=== PATIENT | male | born 1970 | race Two or more races ===

== ENCOUNTER 2016-07-22 05:49 | Emergency (ER) | payer OTHER ==
[~2016-07-22] VITALS: Ht 177.8 cm; Wt 95.3 kg
[2016-07-22 05:58] VITALS: BP 130/84
== END 2016-07-22 06:40 | disposition home or self-care (01) ==
LOC: ER 05:52
DX: K08.89 Other specified disorders of teeth and supporting structures (principal); F17.210 Nicotine dependence, cigarettes, uncomplicated
CPT/HCPCS: 99283; A4606; Z7610

== ENCOUNTER 2018-03-23 12:06 | Emergency (ER) | payer OTHER ==
[~2018-03-23] VITALS: Ht 172.7 cm; Wt 101.2 kg
[2018-03-23 12:06] VITALS: BP 122/91
[2018-03-23] MEDS ORDERED: TDAP [DIPH/PERTUSSIS/TET] 0.5 ML VIAL IM ONE ×2 (13:00→13:02)
== END 2018-03-23 13:34 | disposition home or self-care (01) ==
LOC: ER 12:07
DX: S71.151A Open bite, right thigh, initial encounter (principal); S61.451A Open bite of right hand, initial encounter; F17.200 Nicotine dependence, unspecified, uncomplicated; W54.0XXA Bitten by dog, initial encounter; Y93.89 Activity, other specified; Y92.89 Other specified places as the place of occurrence of the external cause; Y99.8 Other external cause status
CPT/HCPCS: 90471; 90715; 99283; A4606; A6402; Z7610

== ENCOUNTER 2018-07-30 02:12 | Emergency (ER) | payer OTHER ==
[~2018-07-30] VITALS: Ht 182.9 cm; Wt 99.8 kg
--- NOTE | 2018-07-30 02:22 | NUR ---
PT BIBSELF C/O INTERMITTENT CHEST PAINX 1 WEEK. DENIES SOB. PT AOX4. NAD NOTED. RESP EVEN AND UNLABORED. PT ON MONITOR IN BED 9. WILL CONTINUE TO MONITOR.
--- NOTE | 2018-07-30 02:37 | NUR ---
TECH AT BEDSIDE FOR EKG
--- NOTE | 2018-07-30 02:40 | NUR ---
BLOOD DRAWN AND SENT TO LAB
[2018-07-30] MEDS ORDERED: KETOROLAC TROMETHAMINE 15 MG/ML VIAL ONE (02:47)
[2018-07-30 02:52] LABS: BASOPHILS % (AUTO) 0.6 % (0.0-2.0); EOSINOPHILS % (AUTO) 1.4 % (0.0-6.0); HEMATOCRIT 43 % (39-51); HEMOGLOBIN 14.6 g/dL (13.5-17.5); LYMPHOCYTES # (AUTO) 1.3 /CMM (0.8-4.8); LYMPHOCYTES % (AUTO) 24.8 % (20.0-44.0); MEAN CORPUSCULAR HGB CONC 34 g/dl (31.0-36.0); MEAN CORPUSCULAR VOLUME 86 fL (80-96); MONOCYTES # (AUTO) 0.6 /CMM (0.1-1.30); MONOCYTES % (AUTO) 11.5 % (2.0-12.0); NEUTROPHILS # (AUTO) 3.4 /CMM (1.8-8.9); NEUTROPHILS % (AUTO) 61.7 % (43.0-81.0); PLATELET COUNT (AUTO) 153 /CMM (150-450); RED BLOOD CELL COUNT(AUTO) 5.06 MIL/uL (4.5-6.0); WHITE BLOOD COUNT (AUTO) 5.4 K/uL (4.3-11.0)
[2018-07-30 02:55] VITALS: BP 124/79
--- NOTE | 2018-07-30 02:55 | NUR ---
RADIOLOGY AT BEDSIDE FOR XRAY
[2018-07-30] MEDS ORDERED: KETOROLAC TROMETHAMINE INJ 30 MG/ML VIAL IV ONE (03:00)
[2018-07-30] MEDS ORDERED: IV NS 0.9% 500 ML BAG IV ONE (03:00)
--- NOTE | 2018-07-30 03:00 | NUR ---
ADDENDUM: Intravenous End Time Documentation: Normal saline 500 cc (IV-WO): start time: 0300 AM; end time: 0325 AM: IV site:[facility] # 18 Port #1
[2018-07-30 03:05] LABS: ALANINE AMINOTRANSFERASE 36 U/L (12-78); ALBUMIN 3.7 g/dL (3.4-5.0); ALKALINE PHOSPHATASE 58 U/L (46-116); ASPARTATE AMINOTRANSFERASE 13 U/L (15-37); BILIRUBIN,DIRECT 0.1 mg/dL (0.0-0.2); BILIRUBIN,TOTAL 0.3 mg/dL (0.2-1.0); CALCIUM, SERUM 8.7 mg/dL (8.5-10.1); CARBON DIOXIDE 28 mmol/L (21-32); CHLORIDE 108 mmol/L (98-107); CREATININE 1.1 mg/dL (0.6-1.3); GLUCOSE 100 mg/dL (74-106); LIPASE 204 U/L (73-393); POTASSIUM 3.7 mmol/L (3.5-5.1); SODIUM SERUM 144 mmol/L (136-145); TOTAL PROTEIN, SERUM 6.5 g/dL (6.4-8.2); UREA NITROGEN, BLOOD 18 mg/dL (7-18)
--- NOTE | 2018-07-30 03:28 | NUR ---
IV removed. Catheter intact and site benign. Pressure and 4x4 applied to site. No bleeding noted.Patient discharged to home in stable condition. Written and verbal after care instructions given. Patient verbalizes understanding of instruction.
== END 2018-07-30 03:29 | disposition home or self-care (01) ==
LOC: ER 02:16
DX: S29.011A Strain of muscle and tendon of front wall of thorax, initial encounter (principal); F17.200 Nicotine dependence, unspecified, uncomplicated; E86.0 Dehydration; Z87.442 Personal history of urinary calculi; X58.XXXA Exposure to other specified factors, initial encounter; Y93.89 Activity, other specified; Y92.89 Other specified places as the place of occurrence of the external cause; Y99.8 Other external cause status
CPT/HCPCS: 36415; 71045; 80048; 80076; 83690; 84484; 85025; 93005; 96374; 99284; A4606; J1885; J7040; Z7610

== ENCOUNTER 2019-05-25 14:33 | Emergency (ER) | payer OTHER ==
[~2019-05-25] VITALS: Ht 180.3 cm; Wt 100.2 kg
[2019-05-25 14:40] VITALS: BP 131/97
--- NOTE | 2019-05-25 14:52 | NUR ---
SEEN AND EXAMINED BY .
--- NOTE | 2019-05-25 14:55 | NUR ---
ER PHLEB AT BEDSIDE FOR BLOOD DRAW.
--- NOTE | 2019-05-25 15:06 | NUR ---
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
[2019-05-25 15:09] LABS: BASOPHILS % (AUTO) 0.9 % (0.0-2.0); EOSINOPHILS % (AUTO) 1.9 % (0.0-6.0); HEMATOCRIT 43 % (39-51); HEMOGLOBIN 14.3 g/dL (13.5-17.5); LYMPHOCYTES # (AUTO) 1.1 /CMM (0.8-4.8); LYMPHOCYTES % (AUTO) 24.8 % (20.0-44.0); MEAN CORPUSCULAR HGB CONC 33 g/dl (31.0-36.0); MEAN CORPUSCULAR VOLUME 87 fL (80-96); MONOCYTES # (AUTO) 0.5 /CMM (0.1-1.30); MONOCYTES % (AUTO) 10.9 % (2.0-12.0); NEUTROPHILS # (AUTO) 2.8 /CMM (1.8-8.9); NEUTROPHILS % (AUTO) 61.5 % (43.0-81.0); PLATELET COUNT (AUTO) 139 /CMM (150-450); WHITE BLOOD COUNT (AUTO) 4.6 K/uL (4.3-11.0)
[2019-05-25 15:13] LABS: CALCIUM, SERUM 8.7 mg/dL (8.5-10.1); CREATININE 0.9 mg/dL (0.6-1.3)
--- NOTE | 2019-05-25 15:14 | NUR ---
TECH AT BEDSIDE FOR EKG.
--- NOTE | 2019-05-25 15:54 | NUR ---
Patient discharged to home in stable condition. Written and verbal after care instructions given. Patient verbalizes understanding of instruction.
== END 2019-05-25 15:55 | disposition home or self-care (01) ==
LOC: ER 14:35
DX: J32.9 Chronic sinusitis, unspecified (principal); J45.909 Unspecified asthma, uncomplicated; Z87.442 Personal history of urinary calculi
CPT/HCPCS: 36415; 71045-TC; 80048-TC; 85025-TC

== ENCOUNTER 2022-10-25 08:53 | Emergency (ER) | payer OTHER ==
[~2022-10-25] VITALS: Ht 182.9 cm; Wt 99.8 kg
--- NOTE | 2022-10-25 09:12 | NUR ---
DR KING AT BEDSIDE FOR EVAL.
--- NOTE | 2022-10-25 09:20 | NUR ---
IV LINE STARTED BLOOD DRAWN AND SENT TO LAB.
[2022-10-25] MEDS ORDERED: ACETAMINOPHEN ES 500 MG TABLET ONE (09:23)
--- NOTE | 2022-10-25 09:24 | NUR ---
RADIOLOGY AT BEDSIDE FOR EVAL.
[2022-10-25] MEDS ORDERED: IV NS 0.9% 1,000 ML IV ONE (09:30)
[2022-10-25] MEDS ORDERED: ACETAMINOPHEN 325 MG TABLET PO ONE (09:30)
[2022-10-25 09:44] LABS: BASOPHILS % (AUTO) 0.5 % (0.0-2.0); HEMATOCRIT 44 % (39-51); HEMOGLOBIN 14.4 g/dL (13.5-17.5); LYMPHOCYTES # (AUTO) 0.3 K/uL (0.8-4.8); LYMPHOCYTES % (AUTO) 12.4 % (20.0-44.0); MEAN CORPUSCULAR HGB CONC 33 g/dl (31.0-36.0); MEAN CORPUSCULAR VOLUME 85 fL (80-96); MONOCYTES # (AUTO) 0.3 K/uL (0.1-1.30); MONOCYTES % (AUTO) 11.1 % (2.0-12.0); NEUTROPHILS # (AUTO) 2.1 K/uL (1.8-8.9); PLATELET COUNT (AUTO) 63 K/uL (150-450); RED BLOOD CELL COUNT(AUTO) 5.13 MIL/uL (4.5-6.0); WHITE BLOOD COUNT (AUTO) 2.8 K/uL (4.3-11.0)
[2022-10-25 10:03] LABS: CALCIUM, SERUM 8.5 mg/dL (8.5-10.1); CREATININE 1.1 mg/dL (0.6-1.3); POTASSIUM 3.3 mmol/L (3.5-5.1)
[2022-10-25] MEDS ORDERED: POTASSIUM CHLORIDE 20 MEQ TAB.PRT.SR PO ONE ×2 (10:30→11:00)
[2022-10-25] MEDS ORDERED: TYL2T PO (11:22)
[2022-10-25] MEDS ORDERED: IBUP-1953 PO (11:22)
--- NOTE | 2022-10-25 11:33 | NUR ---
PT DISCHARGED EDUCATATED ON Rx AND DISCHARGE INSTRUCTIONS. IV CATHETER D/C'ED PT IN STABLE CONDITION WITH STEADY GAIT.
[2022-10-25 11:35] VITALS: BP 124/62
[2022-10-25 16:32] LABS: BAND % (MANUAL) 1 % (0.0-5.0); LYMPHOCYTES % (MANUAL) 10 % (16-48); MONOCYTES % (MANUAL) 11 % (0-11.0); NEUTROPHILS % (MANUAL) 77 (42-76); REACTIVE LYMPHOCYTES 1 % (0-0)
== END 2022-10-25 11:36 | disposition home or self-care (01) ==
LOC: ER 08:55
DX: J06.9 Acute upper respiratory infection, unspecified (principal); E87.6 Hypokalemia; F17.200 Nicotine dependence, unspecified, uncomplicated; Z87.442 Personal history of urinary calculi; Z20.822 Contact with and (suspected) exposure to COVID-19
CPT/HCPCS: 99285; 96360; 71045; 87426; 93005; 87804 ×2; 85025; 80048; 83605; 36415; 85007; J7030; C9803

== ENCOUNTER 2023-08-02 13:31 | Emergency (ER) | payer OTHER ==
[~2023-08-02] VITALS: Ht 182.9 cm; Wt 99.8 kg
[~2023-08-02 13:31] MED LIST: IBUP-1953 PO; TYL2T PO
[2023-08-02] MEDS ORDERED: IV NS 0.9% 1,000 ML BAG IV ONE (14:00)
[2023-08-02] MEDS ORDERED: ACETAMINOPHEN ES 500 MG TABLET PO ONE (14:00)
[2023-08-02 14:03] LABS: BASOPHILS % (AUTO) 0.6 % (0.0-2.0); EOSINOPHILS # (AUTO) 0.1 K/uL (0.0-0.7); EOSINOPHILS % (AUTO) 1.2 % (0.0-6.0); HEMATOCRIT 43 % (39-51); HEMOGLOBIN 14.2 g/dL (13.5-17.5); LYMPHOCYTES # (AUTO) 1.4 K/uL (0.8-4.8); LYMPHOCYTES % (AUTO) 28.8 % (20.0-44.0); MEAN CORPUSCULAR HEMOGLOBIN 28 PG (26.0-33.0); MEAN CORPUSCULAR HGB CONC 33 g/dl (31.0-36.0); MEAN CORPUSCULAR VOLUME 85 fL (80-96); MONOCYTES # (AUTO) 0.6 K/uL (0.1-1.30); MONOCYTES % (AUTO) 11.5 % (2.0-12.0); NEUTROPHILS # (AUTO) 2.9 K/uL (1.8-8.9); NEUTROPHILS % (AUTO) 57.9 % (43.0-81.0); PLATELET COUNT (AUTO) 170 K/uL (150-450); RED BLOOD CELL COUNT(AUTO) 5.02 MIL/uL (4.5-6.0); WHITE BLOOD COUNT (AUTO) 4.9 K/uL (4.3-11.0)
[2023-08-02 14:16] LABS: CALCIUM, SERUM 8.7 mg/dL (8.5-10.1); CREATININE 0.8 mg/dL (0.6-1.3); POTASSIUM 3.8 mmol/L (3.5-5.1)
[2023-08-02 14:17] LABS: ALBUMIN 3.9 g/dL (3.4-5.0); BILIRUBIN,DIRECT 0.1 mg/dL (0.0-0.2); BILIRUBIN,TOTAL 0.6 mg/dL (0.2-1.0); TOTAL PROTEIN, SERUM 7.2 g/dL (6.4-8.2)
[2023-08-02] MEDS ORDERED: ACETAMINOPHEN ES 500 MG TABLET ONE (14:31)
[2023-08-02 14:51] LABS: APPEARANCE,URINE CLEAR (CLEAR); BILIRUBIN,URINE NEGATIVE (NEGATIVE); BLOOD, URINE 1+ Ery/uL (NEGATIVE); COLOR,URINE YELLOW (YELLOW); KETONES,URINE NEGATIVE (NEGATIVE); LEUKOCYTE ESTERASE ,URINE NEGATIVE (NEGATIVE); NITRITE, URINE NEGATIVE (NEGATIVE); PROTEIN,URINE NEGATIVE (NEGATIVE); UGLUCOSE NEGATIVE (NEGATIVE); UROBILINOGEN,URINE 0.2 EU/dL (0.2)
[2023-08-02 15:18] LABS: ADD URINE CULTURE NO; BACTERIA,URINE Rare /HPF (None Seen); RBC,URINE 0-2 /HPF (0-2); SQUAMOUS EPITHELIAL CELL,UR Rare /HPF (None Seen); WBC,URINE NONE SEEN /HPF (0-3)
[2023-08-02] MEDS ORDERED: HYDR-4303 PO (16:12)
[2023-08-02 16:39] VITALS: BP 132/77; TEMP 98; O2SAT 97
[2023-08-02] MEDS ORDERED: HYDR-4277 PO (17:31)
== END 2023-08-02 16:39 | disposition home or self-care (01) ==
LOC: ER 13:36
DX: N23 Unspecified renal colic (principal)
CPT/HCPCS: 99284; 74176; 96360; 85025; 80048; 83690; 80076; 81001; 36415; J7030

== ENCOUNTER 2025-05-09 21:45 | Emergency (ER) | payer OTHER ==
[~2025-05-09] VITALS: Ht 182.9 cm; Wt 108.9 kg
[~2025-05-09 21:45] MED LIST changes: +HYDR-4277 PO; +HYDR-4303 PO
[2025-05-09] MEDS ORDERED: ONDANSETRON 4 MG TAB.RAPDIS ONE (22:48)
[2025-05-09] MEDS ORDERED: KETOROLAC TROMETHAMINE INJ 30 MG/ML VIAL ONE (22:48)
[2025-05-09] MEDS: KETOROLAC TROMETHAMINE INJ 30 MG/ML VIAL IM ONE (23:08)
[2025-05-09] MEDS: ONDANSETRON 4 MG TAB.RAPDIS SL ONE (23:08)
[2025-05-09 23:19] LABS: CALCIUM, SERUM 9.1 mg/dL (8.5-10.1); CREATININE 0.9 mg/dL (0.6-1.3); PLATELET COUNT (AUTO) 143 K/uL (150-450); RED BLOOD CELL COUNT(AUTO) 5.04 MIL/uL (4.5-6.0); RED CELL DISTRIBUTION WIDTH 13.8 % (11.5-15.0); SODIUM SERUM 146 mmol/L (136-145); UREA NITROGEN, BLOOD 14 mg/dL (7-18); WHITE BLOOD COUNT (AUTO) 6.0 K/uL (4.3-11.0)
[2025-05-09 23:24] LABS: INR 0.99 (0.91-1.10)
[2025-05-10 02:06] VITALS: BP 140/85; TEMP 98.2; O2SAT 98
== END 2025-05-10 02:06 | disposition home or self-care (01) ==
LOC: ER 21:49
DX: S13.4XXA Sprain of ligaments of cervical spine, initial encounter (principal); S29.012A Strain of muscle and tendon of back wall of thorax, initial encounter; S39.012A Strain of muscle, fascia and tendon of lower back, initial encounter; R07.89 Other chest pain; F17.200 Nicotine dependence, unspecified, uncomplicated; Z87.442 Personal history of urinary calculi; V43.52XA Car driver injured in collision with other type car in traffic accident, initial encounter; Y93.89 Activity, other specified; Y92.410 Unspecified street and highway as the place of occurrence of the external cause; Y99.8 Other external cause status
CPT/HCPCS: 99285; 72125; 71045; 96372; 93005; 70450; 72131; 72128; 85025; 80048; 36415 ×2; 84484 ×2; 85730; J1885; Q0162